=== PATIENT | female | born 1990 | race Caucasian/White ===

== ENCOUNTER 2020-05-15 15:57 | Outpatient (REF) | payer BC, SELFPAY ==
[2020-05-17 23:56] LABS: Patient Race White; SARS-CoV-2 RNA Undetected (Undetected); SARS-CoV-2 Specimen Source Nasopharynx
== END 2020-05-15 16:17 ==
LOC: NCHCN 15:57
PROVIDERS: PCP Nurse Practitioner Family; Visit Provider Family Medicine
DX: Z20.828 Contact with and (suspected) exposure to other viral communicable diseases (principal)
CPT/HCPCS: U0003

== ENCOUNTER 2020-06-27 14:47 | Outpatient (REF) | payer SELFPAY ==
[2020-06-30 08:17] LABS: SARS-CoV-2 RNA Source Nasal/Nares
[2020-06-30 08:18] LABS: SARS-CoV-2 RNA Not Detected (NotDetected)
== END 2020-06-27 15:07 ==
LOC: NCHCN 14:47
PROVIDERS: PCP Nurse Practitioner Family; Visit Provider Nurse Practitioner Family
DX: Z20.828 Contact with and (suspected) exposure to other viral communicable diseases (principal)
CPT/HCPCS: U0003

== ENCOUNTER 2020-09-27 13:38 | Outpatient (REF) | payer OTHER, SELFPAY ==
[2020-09-27 13:21] LABS: HCT 39.9 % (36.0-46.0); HGB 12.9 g/dL (11.2-15.7); MCH 27.8 pg (27.0-33.0); MCHC 32.3 % (32.0-36.0); MPV 10.6 fL (8.0-11.0); Platelet Count 305 10^3/uL (130-400); RBC 4.64 10^6/uL (3.93-5.22); RDW 12.6 % (11.7-14.6); RDW-SD 39.4 fL; WBC 6.05 10^3/uL (4.4-10.8)
[2020-09-27 14:10] LABS: Anion Gap 7.2 mmol/L (3-11); BUN 13 mg/dL (7-18); CO2 29.8 mmol/L (21.0-32.0); CREATININE 0.8 mg/dL (0.55-1.02); Calcium 9.4 mg/dL (8.5-10.1); Calculated LDL 146 mg/dL (<100); Chloride 103 mmol/L (98-107); Cholesterol 221 mg/dL (<200); Glucose 93 mg/dL (74-106); HDL Cholesterol 64 mg/dL (40-60); Potassium 4.3 mmol/L (3.5-5.1); Sodium 140 mmol/L (136-145); Triglyceride 55 mg/dL (<150)
== END 2020-09-27 13:39 | disposition home or self-care (01) ==
LOC: NCHCN 13:38
PROVIDERS: PCP Nurse Practitioner Family; Visit Provider Nurse Practitioner Family
DX: Z13.220 Encounter for screening for lipoid disorders (principal); R27.9 Unspecified lack of coordination
CPT/HCPCS: 80048; 80061; 85027